=== PATIENT | female | born 1955 | race Hispanic/Latino ===

== ENCOUNTER 2024-07-08 17:31 | Emergency (ER) | payer MEDICARE ==
[~2024-07-08] VITALS: Ht 154.9 cm; Wt 90.7 kg
[~2024-07-08 17:31] MED LIST: SINGULAIR10 MG PO
[2024-07-08 19:44] VITALS: PULSE 93; RESP 18; TEMP 98.4; O2SAT 96
[2024-07-08] MEDS ORDERED: ULTRAM 50MG50 MG PO (19:46)
[2024-07-08] MEDS: KETOROLAC TROMETHAMINE 60 MG/2 ML VIAL IM STA (19:46)
[2024-07-08 19:47] VITALS: BP 104/83
[2024-07-08] MEDS: NITROGLYCERIN 2% OINT 1 GM PKT TOP STA (19:47)
== END 2024-07-08 20:06 | disposition home or self-care (01) ==
LOC: ER 17:57
DX: M54.32 Sciatica, left side (principal); S60.011A Contusion of right thumb without damage to nail, initial encounter; X58.XXXA Exposure to other specified factors, initial encounter; Y92.89 Other specified places as the place of occurrence of the external cause; E03.9 Hypothyroidism, unspecified; K21.9 Gastro-esophageal reflux disease without esophagitis; H40.9 Unspecified glaucoma; N32.81 Overactive bladder
CPT/HCPCS: 72100; 99283; J1885